=== PATIENT | male | born 1945 | race Caucasian/White ===

== ENCOUNTER 2019-10-12 16:16 | Inpatient (IN) | payer OTHER ==
[~2019-10-12] VITALS: Ht 175.3 cm; Wt 90.0 kg
[2019-10-12 17:31] VITALS: BP 98/39
[2019-10-12 17:53] VITALS: BP 98/39
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
[2019-10-12] MEDS ORDERED: PAIN RELIEF325 MG PO (18:06)
[2019-10-12] MEDS ORDERED: VITAMIN C500 M2 PO (18:07)
[2019-10-12] MEDS ORDERED: FLOMAX0.4 MG PO (18:18)
[2019-10-12] MEDS ORDERED: HYDROCORT-PRAMO30 G1 TOP (18:19)
[2019-10-12] MEDS ORDERED: IPRAT-ALBUT 0.5-3 ML NEB (18:23)
[2019-10-12] MEDS ORDERED: LASIX 40 MG TAB40 MG PO (18:25)
[2019-10-12] MEDS ORDERED: LOSARTAN POTASS50 MG PO ×2 (18:26→18:27)
[2019-10-12] MEDS ORDERED: MELATONIN TR 51 EACH PO (18:29)
[2019-10-12] MEDS ORDERED: METAMUCIL1 EAC1 PO (18:30)
[2019-10-12] MEDS ORDERED: PREDNISONE 10 M10 MG PO (18:32)
[2019-10-12] MEDS ORDERED: PRIMIDONE 250M250 MG PO (18:35)
[2019-10-12] MEDS ORDERED: SENNA8.8 MG/5 M PO (18:36)
[2019-10-12] MEDS ORDERED: SINEMET 25-1001 EAC1 PO (18:37)
[2019-10-12 20:00] VITALS: BP 105/68
--- NOTE | 2019-10-12 23:50 | NUR ---
ASSUMED CARE @ 19:15 ON 10/12/19, UP IN A W/C IN THE DAY ROOM. COOPERATED WITH ASSESSMENT AND TOOK MEDS CRUSHED IN YOGART WITH NECTAR THICKENED LIQUIDS. WHEN TRANSFERRED TO BED BECAME COMBATITIVE WITH INCONTINENT CARE, HITTING STAFF. ORDER OBTAINED FORM WALLY SLATER FOR IM ZYPREXA 5 MG X 1 @ 23:45.
[2019-10-13 04:08] VITALS: BP 105/68
--- NOTE | 2019-10-13 06:30 | NUR ---
SLEPT 7.2 HOURS OVERNIGHT.
--- NOTE | 2019-10-13 07:00 | NUR ---
Assumed care of patient this am. Patient in bed resting. Patients voice aphasic. Patient responds appropriately to questions and can be understood by repeating questions as needed. Patient ambulates via wheelchair. Patient requires assist to get to chair. Patient takes medications crushed in applesauce. Patients assessment reveals clear breath sounds, active bowel sounds, and s1 s2 heard with auscultation.
[2019-10-13 07:30] VITALS: BP 164/77
--- NOTE | 2019-10-13 08:36 | NUR ---
Pt identified with 2 point high nutrition screening risk for unintentional wt loss and decreased appetite. EMR with little info at this time and pt just recently admitted. Appears wt down about 10 lb x 3 mo. BMI is 28.8. No record of intake yet. On [facility] altered diet. Will followup again on 10/16 when further intake trends are identified.
[2019-10-13 08:49] VITALS: BP 164/77
--- NOTE | 2019-10-13 16:37 | NUR ---
SPENCER contacted Philomena Silva to gather background information on pt and schedule a family meeting. SPENCER called [phone] (cell) and [phone] (home) and no answer. SPENCER left a message at both numbers. SW team will continue to follow pt during his stay.
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
[2019-10-14 07:55] VITALS: BP 146/88
--- NOTE | 2019-10-14 12:41 | NUR ---
SW completed assessment with Pt's , Waylon Kirk, as Pt unable to complete assessment. SPENCER also scheduled a family meeting for 10/17/19 @ 3:30pm.
--- NOTE | 2019-10-14 18:26 | NUR ---
Lying in bed with out s/o distress. States "no" in response to questions. Mild aggression when attempting to get up in wheelchair. Orientated to person. Able to bear very little weight and required assistance of 3 staff members. Alert and focuses. Breath sounds clear in upper lobes, decreased in lower. RT here giving treatment. Loose, nonproductive cough. Color pink with brisk capillary refill and palpable peripheral pulses. +1-+2 nonpitting edema in lower extremities, kay hose in place. Regular HR auscultated. Active bowel sounds over soft, rounded abdomen. Voiding yellow urine. 1500 Sitting most of day in wheelchair without s/o distress. Compliant with meds. 1830 To bed with assistance of chemic mangler. No s/o distress. Color pink.
[2019-10-14 21:22] VITALS: BP 112/59
--- NOTE | 2019-10-14 22:30 | NUR ---
ASSUMED CARE ON 10/14/19 @ APROXIMATELY 19:15, IN BED AWAKE AND RESPONSIVE TO QUESTIONS AND CONVERSATION, PROVIDING ONE WORD ANSWERS TO QUESITONS, AND SMILING IN RESPONSE TO HUMOR. COOPERATED WITH ASSESSMENT, HRRR, S1S2 AUSCULTATED, LUNGS SOUNDS COURSE UPPER MCCOY, RT PROVIDED RESPIRATORY TX. ABD SOUNDS N X 4 Q. INCONTINENT CARE GIVEN, X3 ASSIST, SOME RESISTANCE NOTED, STAFF NEEDED TO HOLD FOREARMS TO KEEP PT FROM SCRATCHING STAFF. BM X 1 INCONTINENT. REDNESS NOTED TO GROIN, GLUTEAL CLEFT, AND ABDOMEN FOLDS. RETURNED TO SLEEP, BED IN LOW POSITION WITH HOB ELEVATED, BED ALARM SET, WILL CONTINUE TO MONITOR Q 12 MINUTES FOR PATIENT SAFETY.
--- NOTE | 2019-10-15 04:42 | NUR ---
PATIENT AGITATED WITH INCONTINENT CARE, IM OLANZAPINE 7.5 MG PROVIDED @ 04:35 IN THE L DELT, TOLERATED WELL, INCONTINENT CARE PROVIDED IN 15 MINUTES.
[2019-10-15 09:40] VITALS: BP 123/61
[2019-10-15 09:49] VITALS: BP 123/61
--- NOTE | 2019-10-15 09:57 | NUR ---
ASSUMED CARE AT 0700 THIS MORNING. PT. IN BED. CERTIFIED PERSONAL CHEF'S TIMES 2 GOT PT. UP IN W/C FOR BREAKFAST. HE CONTINUES TO BE LATHARGIC. HE WAS SOMEWHAT COMBATIVE WHEN HIS MEDICATIONS WERE INTRODUCED TO HIM THIS MORNING. IT TOOK A WHILE FOR HIM TO ACCEPT THE MEDICATIONS. HE DID ATTEMPT TO MOVE STAFF AWAY BY FLAPPING HIS ARMS. HE WOULD SAY, "I DON'T NEED THOSE. I DON'T WANT THAT", BUT EVENTUALLY DID TAKE THOSE MEDICATIONS. HE ATE VERY LITTLE FOR BREAKFAST. HE WAS UNABLE TO ATTEND MORNING MEETING. NO S/S AVH OR SI/HI.
[2019-10-15 19:55] VITALS: BP 125/54
--- NOTE | 2019-10-15 23:43 | NUR ---
ASSUMED CARE ON 10/15/19 @ 19:15, IN BED, AWAKENS TO VOICE. BTX PROVIDED BY RT. COOPERATED WITH PHYSICAL ASSESSMENT. LUNGS CLEAR TO AUSCULTATION, HRRR, ABD NORMOACTIVE X 4 Q. UNABLE TO ANSWER MENTAL HEALTH ASSESSMENT, NO APPARENT VH OR AH. DOES NOT SEEM TO FEEL INCLINED TO HURT SELF. BECOMES COMBATITIVE WITH ATTEMPTS TO PROVIDE INCONTINENT CARE. TOOK ABOUT HALF OF PO MEDS CRUSHED IN ICE CREAM, REFUSED REMAINDER. BED IN LOW POSITION, BED ALARM SET, WILL CONTINUE TO MONITOR Q 12 MINUTES FOR PATIENT SAFETY.
--- NOTE | 2019-10-16 05:50 | NUR ---
SLEPT 11 HOURS OVERNIGHT
--- NOTE | 2019-10-16 07:00 | NUR ---
Assumed care of patient this am. Patient in bed sleeping. Patient was slightly combative when woke up. Patient ambulates via wheel chair. Patient is a assist x2. Patient takes medications crushed in pudding. Patients affect tense. Patients assessment reveals clear breath sounds, active bowel sounds, and s1 s2 heard with auscultation. Vital signs stable.
[2019-10-16 07:30] VITALS: BP 141/88
[2019-10-16 08:37] VITALS: BP 141/88
--- NOTE | 2019-10-16 23:00 | NUR ---
PATIENT WAS IN BED SLEEPING AND EASILY AWAKENED WHEN I CAME ON SHIFT AT 1900. PATIENT IS CONFUSED AND COMBATIVE WITH CARES. PATIENT IS INCONTINENT AND ASSISTED IN INCONTINENCE CARES WITH ASSIST OF 2-3 PEOPLE. ANTIFUNGAL CREAM PLACED IN GENITAL AREA WHERE IT IS RED AND PATIENT SCRATCHES. ANTIFUNGAL CREAM ALSO PLACE UNDER ABDOMINAL FOLD WHERE AREA IS RED ALSO. AREAS WERE CLEANED FIRST WITH SOAP AND WATER BEFORE APPLYING CREAM. TRIED TO TALK CALMLY AND EXPLAIN EACH STEP IN THE PROCESS WE CARED FOR HIM. PATIENT TOOK HIS MEDS CRUSHED IN PUDDING. FINALLY GOT THEM DOWN WITHIN 3 TIMES OF GIVING. WOULD ONLY TAKE ONE SPOON OF PUDDING AND THEN REFUSE AND FIGHT. CAME BACK AT 2 DIFFERENT TIMES AND GOT ALL THE MEDS DOWN. PATIENT WENT BACK TO SLEEP IMMEDIATELY. NIGHT CLOTHES WERE PUT ON HIM AND COMPRESSION STOCKINGS TAKEN OFF. CLOTHES BEING WASHED TONIGHT. BED ALARM ON AND BED IN LOW POSITION. SIDE RAILS UP.
[2019-10-17] VITALS (7 sets, daily range): BP systolic 106–120; BP diastolic 54–84
--- NOTE | 2019-10-17 05:55 | NUR ---
WHEN DOING INCONTINENCE CARES THIS AM, THIS NURSE NOTICED SOME SEROUS SANGIOUS DRAINAGE ON PATIENT'S MID BACK BETWEEN SHOULDER BLADES. AN ABRAISION WITH 1 INCH AREA THAT HAS BROKEN SKIN IS PRESENT AND OVERALL SIZE OF ABRAISON IS 3 INCHES. CLEANED AREA WITH SOAP AND WATER AND APPLIED STERILE DRESSING. CONSULT FOR WOUND CARE PUT IN. WILL ASK DAY SHIFT TO TAKE PICTURE WHEN PATIENT GETS UP FOR THE DAY. APPEARS TO HAVE OCCURRED FROM FRICTION IN BED WHEN MOVING AROUND AND TRYING TO GET HIS SHIRT OFF. WILL CONTINUE TO MONITOR AND TURN PATIENT NEEDED PRN.
--- NOTE | 2019-10-17 06:02 | NUR ---
PATIENT DRESSED FOR DAY BUT WANTING TO SLEEP. WAS NOT COMBATIVE TODAY WITH CARES BUT STILL TRIES TO HIT AT TIMES. COMPRESSION STOCKINGS PUT BACK ON PATIENT. 2+ BLE EDEMA. YELLOW SHIRT PLACED ON PATIENT. BED ALARM ON AND BED IN LOW POSITION.
--- NOTE | 2019-10-17 06:14 | NUR ---
CALLED DR ANNE[facility]SWERING [facility] AND SPOKE WITH EMILI. LET HER KNOW THAT WE HAD A NEW CONSULT ORDER FOR MID BACK ABRAISION BETWEEN SHOULDER BLADES PER DR MATOS. ROUTINE CONSULT.
[2019-10-17 12:25] LABS: HEMATOCRIT 42.4 % (42.0-52.0); HEMOGLOBIN 13.6 gm/dL (14.0-18.0); MCH 28.9 pg (26.0-34.0); MCV 90.4 fL (80.0-100.0); PLATELET COUNT 133 thou/uL (150-400); RDW 17.9 % (10.5-14.5); WBC 6.4 thou/uL (4.0-11.0)
[2019-10-17 12:40] LABS: CALCIUM 10.6 mg/dL (8.5-10.1); POTASSIUM 4.3 mmol/L (3.5-5.1)
[2019-10-17 12:45] LABS: ABSOLUTE NEUTROPHILS 5.3 thou/uL (1.4-8.2); ANISOCYTOSIS 1+; METAMYELOCYTES 1 %
--- NOTE | 2019-10-17 13:56 | NUR ---
WOUND CONSULT; ROUNDING WITH DR ANNE TODAY. THE PATIENT WAS MILDY COMBATIVE TODAY. THE WOUND TO THE UPPER BACK WAS MINIMAL AND ONLY BLISTER-LIKE. RECOMMENDATIONS; APPLY A BOARDERED FOAM DRESSING TO THE UPPER BACK, CHANGE M/W/F AND PRN. WILL DISCUSS WITH JERROD
[2019-10-17 14:37] LABS: ALBUMIN 2.8 g/dL (3.4-5.0); DIRECT BILIRUBIN 0.2 mg/dL (<0.1-0.2); TOTAL BILIRUBIN 0.5 mg/dL (<0.1-1.0); TOTAL PROTEIN 7.3 g/dL (6.4-8.2)
[2019-10-17 14:38] LABS: URINE BILIRUBIN NEGATIVE (Negative); URINE BLOOD NEGATIVE (Negative); URINE CLARITY CLEAR; URINE COLOR YELLOW; URINE GLUCOSE-RANDOM* NEGATIVE (Negative); URINE KETONES TRACE (Negative); URINE LEUKOCYTES-REFLEX NEGATIVE (Negative); URINE NITRITE-REFLEX NEGATIVE (Negative); URINE PROTEIN (DIPSTICK) NEGATIVE (Negative)
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
--- NOTE | 2019-10-17 19:46 | NUR ---
In w/c at table without s/o distress, slouched to left. Responsive to questions with very little vocalizations. Cooperative but drowsy. Took meds without difficulty but had brief coughing episode several min after meds administered. At approximately 0950 was noted to have respiratory rate of 24 and was using supraclavicular retractions. No nasal flaring. O2 sat was 90-93% on RA. Breath sounds decreased in LLL, clear in upper lobes. BP 120s/70s with HR of 104. Repositioning did not improve. Dr. Tejeda here, evaluating pt. Ordered CXR, UA and labs. Spoke with Dr. Hwang via phone. 1200 Dr. Hwang notified of CXR results and that labs/straight cath UA was complete. Ordered VS q 1 hr X 6 hrs, FIO2 of 2 L via NC if sats decreased below 90% and to titrate to keep sats 90-92%. States he will evaluate pt later in afternoon. Also ordered blood CX times 2 and Levaquin 500 mg Q 24 hrs with first dose lexus. here, aware of situation with appropriate questions and concerns. Aware that Dr. Tejeda is considering transferring pt. to a medical unit. 1500 Pt. clinically much improved with RR 16-20 and O2 sats on RA in mid 90s. Took Levaquin PO without difficulty. PT here evaluating patient. Pt. able to ambulate with walker and alot of assistance around unit. Dr. Hwang and Dr. Tejeda here evaluating pt. Concerned about elevated calcium level. Will give 500 ml LR over several hours per IV. 1700 IV team here. Placed 20g jelco per R forearm without difficulty. LR at 150 cc/hr started at 1630. IV site soft and flat without redness or edema, good blood return. Pt. alert and interactive sitting in wc in dining room. Much more active, no s/o distress. 1830 Abrasion to middle back cleaned with NS and drsg applied. Continues to sit without s/o distress. IV infusing without diff per R forearm.
--- NOTE | 2019-10-17 23:36 | NUR ---
PATIENT WAS UP IN IN DINING ROOM RECIEVING IV FLUIDS OF LR 500ML AT 150CC/HR. PATIENT HAS SALINE LOCK PLACED IN RIGHT FOREARM. FLUIDS COMPLETED AT 2004 WITH 500ML IN. PATIENT TOLERATED WELL. PATIENT HAS LEFT HEMIPARESIS AND LEANS TO THE LEFT IN HIS WC. PLACED PILLOW TO HELP PROP HIM UP MORE COMFORTABLY BUT PATIENT KEPT REMOVING IT. PATIENT WAS CALM AND COMPLIANT I SPOKE WITH HIM AT EYE LEVEL AND HE DID TRY AND ANSWER YES AND NO QUESTIONS. FED PATIENT ICECREAM WITH HIS HS CRUSHED MEDS THAT HE TOOK WITHOUT A PROBLEM. IV SITE PATENT WITHOUT REDNESS OR SWELLING AND HAS TRANSDERMAL DRESSING. NS 20CC USED TO FLUSH SALINE LOCK BEFORE CLAMPING OFF. WILL LEAVE LOCK IN D/T RECHECKING SOME LABS IN AM TO ASSESS FOR NEED OF ANY MORE IV FLUIDS. PATIENT IS INCONTINENT AND WAS DRY WHEN PUT TO BED TONIGHT. ANTIFUNGAL CREAM APPLIED TO GENITALS AND ABDOMEN FOLD D/T SLIGHT REDNESS THAT IS CLEARING. PATIENT CONTINUES TO BE COMBATIVE WITH CARES BUT THIS DOES DECREASE IF PATIENT IS APPROACHED SLOWLY AND TALKED THRU THE PROCESS. I KEPT TELLING HIM HE IS SAFE. HE IS OK. AND EXPLAINED WE WORKED WITH HIM. HE IS ASSIST X 3 WITH TRANSFER AND CARES. LUNGS ARE COARSE AND CRACKLES IN RIGHT BASE. HIS 02 SATURATION ON RA TONITE IS 94%. PLACED HEAD OF BED UP TO 45 DEGREE LEVEL TO HELP WITH AIR EXCHANGE IN BREATHING. PATIENT IS NOT SOA. HIS BP IS 117/77 PULSE 96 AND RESPIRATIONS AT 18. TEMP IS 98.5. PATIENT HAS BEEN IN PLEASANT MOOD TONITE AND SMILING AT TIMES. CONTINUING TO MONITOR. BED IN LOW POSITION AND BED ALARM ON.
--- NOTE | 2019-10-18 01:02 | NUR ---
PATIENT SLEEPING IN BED WITH HOB UP 45 DEGREES. 02 SAT IS AT 91% ROOM AIR. NO SOA OR RESPIRATORY DISTRESS. PATIENT'S BRIEF IS DRY AND INTACT. BED ALARM ON AND BED IN LOW POSITION. CONTINUING TO MONITOR.
--- NOTE | 2019-10-18 05:01 | NUR ---
PATIENT SLEEPING WELL TONIGHT. PATIENT HAS MAINTAINED AN 02 SAT AT 91% ON ROOM AIR. DRESSING ON BACK IS CLEAN AND DRY. COMPRESSION STOCKINGS WERE REMOVED AT BED TIME. DENIES PAIN. WILL CONTINUE TO MONITOR. PATIENT HAS NOT BEEN INCONTINENT SO FAR TONIGHT. ABDOMEN SOFT AND NON TENDER. PATIENT HAS ONLY HAD ICECREAM PO TONIGHT. HIS OTHER FLUID INTAKE WAS IV FLUIDS 500ML. WILL CHECK ON PATIENT AGAIN FOR INCONTINENCE CARES IN AN HOUR.
[2019-10-18 05:46] LABS: ALBUMIN 2.1 g/dL (3.4-5.0); CALCIUM 9.6 mg/dL (8.5-10.1); CREATININE 0.9 mg/dL (0.7-1.3); POTASSIUM 5.1 mmol/L (3.5-5.1); TOTAL BILIRUBIN 0.3 mg/dL (<0.1-1.0)
--- NOTE | 2019-10-18 06:09 | NUR ---
PATIENT CHECKED FOR INCONTINENCE AT 0530. PATIENT REMAINED DRY THRU NIGHT. THIS NURSE BLADDER SCANNED PATIENT AND PATIENT RETAINING 548CC IN HIS BLADDER. CALL PLACED TO Nhi AYALA NP FOR ORDER TO STRAIGHT CATH. ORDER GIVEN TO STRAIGHT CATH PATIENT ONE TIME AND THEN BLADDER SCAN PATIENT 8 HOURS LATER. IF PATIENT IS RETAINING 400ML OR GREATER AT THAT TIME THEN NURSE TO CALL THE DR FOR FURTHER ORDERS. PATIENT TOLERATED STERILE STRAIGHT CATH PROCEDURE WITH ASSIST X 3 TO ASSIST WITH HIS COMBATIVE BEHAVIORS DURING CARE. WAS ABLE TO EXTRACT 500CC OF BRIGHT RAMIREZ COLORED URINE. PATIENT SLEPT THRU MOST OF THIS PROCEDURE. ANTIFUNGAL CREAM APPLIED TO PERINEUM AND ABDOMINAL FOLDS. PATIENT SLEEPING. BED ALARM ON AND IN LOW POSITION.
--- NOTE | 2019-10-18 08:38 | EKG ---
[place] [address] [facility] [place] [address] ELECTROCARDIOGRAM REPORT Name: ANABELLE LUBIN Room #: 527B-B ADM IN M.R.#: [id number] Admission: 10/12/19 Attend Phys: Mickey Tejeda DO Discharge: Date of : 43 Report #: [id number] THIS REPORT FOR: //name// [facility] Test Date: 2019-10-17 Test Time: 17:00:33 Pat Name: ANABELLE LUBIN Department: Room: [facility] Gender: M Litigation Services Manager: Mala WAY : 1945 Requested By: Davy Hwang Order Number: [id number] MD: Baltazar Enriquez Measurements Intervals [place] Rate: 96 P: 53 WI: 167 QRS: -8 QRSD: 95 T: 47 QT: 355 QTc: 449 Interpretive Statements Sinus rhythm Left ventricular hypertrophy No previous ECG available for comparison Electronically Signed On 10-18-2019 8:38:00 BENCH MOL[employer] APPRENTICE by Baltazar Enriquez [email or web address] <ELECTRONICALLY SIGNED> By: Baltazar Enriquez MD, [facility] 10/18/19 0838 1700 1700 Baltazar Enriquez MD, FACC /EPI
[2019-10-18 09:30] VITALS: BP 142/49
[2019-10-18 10:51] VITALS: BP 142/49
--- NOTE | 2019-10-18 13:59 | NUR ---
SW called and left a VM with pt's regaridng possible acute rehab uponn d/c and permission to send the referral to [facility] Acute rehab.
--- NOTE | 2019-10-18 14:38 | NUR ---
Assumed care of pt @ 0700. Pt calm et cooperative this am. Nursing assessment performed without difficulty this am. Pt ate meals without difficulty et took medications without complaint. No behaviors noted this am. Will continue to monitor per protocol.
[2019-10-18 20:08] VITALS: BP 109/53
--- NOTE | 2019-10-19 04:06 | NUR ---
1909-Report received from day shift nurse and care assumed. He was in his room lying down and resting. He was compliant with most of the assessment, had aphasia, had one word answers at times other times did not answer. Alert to name only. He has 3+ bilateral lower extremity edema, legs elevated and pt. repositioned side to side. He had a bright affect while talking. Mostly repeated/mirrored what was said to him. Good eye contact. He was compliant with HS meds. crushed and put into applesauce. He slept for first portion of the night hours, then was awake talking to himself. He was incontinent of urine large amount and changed in the nite. He was not aggressive with cares, staff talked with hims softly explaining and he talked during cares but not aggressive. He only slept a short time tonight.
[2019-10-19 08:06] VITALS: BP 132/71
--- NOTE | 2019-10-19 11:20 | NUR ---
Nutrition follow up: Continues on regular mechanically altered/ground diet. Meal intakes are sporadic at times, but over the last 2-3 days, he is now consuming 65-100% of most meals. Did refuse dinner last night, but ate 100% of lunch on 10/18 and 100% of breakfast w/ 100% AM snack so far today. Noted to be alert to name only per latest nursing note. Aphasia with 1 word answers at times or no answer. Chart reviewed. Do note wound care seeing pt with mention of wound to upper back minimal and only blister-like. Will add 1 daily Ensure to breakfast tray for added calorie/protein provision in case another meal of the day is lower than usual. Will keep as low nutrition risk for now, continue to monitor for any drastic po decline.
--- NOTE | 2019-10-19 12:41 | NUR ---
Pt's achieving the current goal to attend at least one recreation therapy group per day to maintain engagement and stimulation within the miliew without decline. Pt did fall ill but has a brighted affect when engaged. This morning was happy, laughing, enjoying comrodery, and following exercise moments to the best of his ability. No change to plan.
--- NOTE | 2019-10-19 14:58 | NUR ---
I have reviewed the documentation by CECILIA ROMERO from 10/19/19 to 10/19/19 and I concur with it. NIKIA SINGH
--- NOTE | 2019-10-19 15:23 | NUR ---
SPENCER spoke with pt's Lindsay who said she wants pt to do go acute rehab at [facility]. SPENCER emailed the coordinator for acute rehab asking her to begin processing pt. SPENCER completed a DA 124-C for pt. SW team will continue to follow pt during his stay.
[2019-10-19 17:29] LABS: CREATININE 0.8 mg/dL (0.7-1.3); POTASSIUM 4.6 mmol/L (3.5-5.1)
[2019-10-19 19:32] VITALS: BP 107/56
--- NOTE | 2019-10-19 20:16 | NUR ---
Up in w/c without s/o distress. Much more alert. Humming at times. Orientated to self only. No verbalizations r/t SI/HI. Took meds without difficulty. Breath sounds clear in upper lobes, remain diminished in LLL. No retractions or nasal flaring. Color pink with brisk capillary refill and palpable peripheral pulses. Regular HR auscultated. +2 edema in feet, compression stockings on. Active bowel sounds over soft, rounded abdomen. No stool documented since 10/15. Dr. Tejeda notified, fleet enema ordered. Requires 2 person assistance to transfer. Abrasion per back without redness or drainage, bandage intact. 1500 Small amt of brown colored liquid from fleet enema. Brief dry, no urine today despite adequate PO intake of [address] Tejeda notified, referred to Dr. Hwang. Bladder scan recorded at [address] Hwang notified. Ordered stat BMP and straight cath if no urine by 1800. 1700 here visiting, aware of plan. Appropriate questions and concerns. suggested [employer] stating that always works at home. Dr. Tejeda notified, order obtained for med. Took without difficulty. 1900 Placed back in bed after dinner. When went in to do straight cath at 1810 he had turned himself around in bed so feet were at HOB and head was at FOB and he was smearing scant amount of stool on body and bed. Cleaned up and straight cath done for 400 ml of clear, concentrated neel urine with one small clot approximately 0.25 cm at end of cathertar. Very cooperative with cleanup and cath and stated he felt better once complete. Dr. Hwang notified of results and clarified phone number to contact him--info passed on in report.
[2019-10-20 01:59] VITALS: BP 107/56
--- NOTE | 2019-10-20 02:07 | NUR ---
ASSUMED CARE @ 19:30 ON 10/19/19, IN BED, AWAKE ALERT AND ORIENTED TO SELF. APHASIA NOTED. UNDERSTANDS WHEN SPOKEN TO, HOWEVER RESPONDS WITH ONLY 2 WORD ANSWERS. ABLE TO UNDERSTAND MOST OF WHAT HE SAYS. CALM PLEASANT AFFECT NOTED. COOPERATED WITH ASSESSMENT AND HS MEDS CRUSHED IN APPLESAUCE. HRRR, LUNGS CTA ALL MCCOY, NOTED TO BE BREATHING WITH REGULAR RESPIRATIONS, EXTREMITIES PINK AND LESS THAN 3 SECOND CAP REFILL. INCONTINENT CARE PROVIDED, BM NOTED. BED IN LOW POSITION, BED ALARM SET, WILL CONTINUE TO MONITOR Q 12 MINUTES FOR PATIENT SAFETY.
--- NOTE | 2019-10-20 06:18 | NUR ---
SLEPT 2.8 HOURS OVERNIGHT.
[2019-10-20 07:40] VITALS: BP 142/68
--- NOTE | 2019-10-20 10:39 | NUR ---
VERY AGITATED AND COMBATIVE UPON INITAL ASSESSMENT THIS AM-AT APPROX 0745 APPROACHED IN ROOM FOR VS AD AMD AM CARES PRIOR TO BREAKFAST, GRABBING AT COVERS,BP AMCHINE AND REFUSING TO LET GO-ANGRY FACIALMEXPRESSION AND LOUDLY SWEARING-WHEN ASSISTED TO SITTING POSITION BY 3 STAFF WAS NOTED TO HAVE BEEN INCONTINENT OF STOOL-ATTEMPTING TO HIT AND KICK STAFF WHEN PERINEAL CARE PROVIDED,BARRIER CREAM PLACE AND BROUFGT TO BREAKFAST -DID EAT WELL WITH ASSIST-TAKE MEDS CRUSHED WITH YOGURT. LABILE MOOD VASCILATING FROM LOUD ANGRY SWEAR WORD TO LAUGHING LOUDLY WITH NO APPARENT TRIGGER WITHIN A MINUTE OT TWO. IS APHASIC AND WPRDS/SPEECH NOT CONSISTANT WITH CURRENT TOPIC.
--- NOTE | 2019-10-20 16:41 | NUR ---
INCONTINENT OF BOWEL AND BLADDER-ASSISTED TO BED BY 3 STAFF AND INCONTINENT CARE PROVIDED-LARGE SOFT BOWEL MOVEMENT AND DURING INCONTINENT CARE IS CONSTANTLY ATTEMPTING TO GRAB PRIVATES RESULTING IN GETTING BM ALL OVER HANDS-ATTEMPTING TO SCRATCH NURSING STAFF-THE WHOLE TIME LAUGHING LOUDLY-DOES TAKE NECTAR THICKENED LIQUIDS VERY WELL. BARRIER CREAM APPLIED TO PERINEAL AREA SLIGHTLY REDDENED BUT NO OPEN AREAS OR RASHES NOTED -2+ pedal edema to FEET/;OWER EXTREMETIES-BLUISH PURPLE COLORATION BUT WARM TO TOUVH-FAINT PEDAL PULSES PALPABLE
[2019-10-20 19:24] VITALS: BP 116/63
--- NOTE | 2019-10-20 22:26 | NUR ---
ASSUMED CARE ON 10/20/19 @ ABOUT 19:15, IN BED AWAKE AND ALERT TO SELF ONLY. COOPERATED WITH ASSESSMENT, HEART RRR LUNGS CTA, ALL MCCOY. ABD N X 4 Q. BM TODAY, 10/20. URINE OUTPUT NOTED. INCONTINENT CARE GIVEN X 4 STAFF. CLEAN LINNENS AND CHUCKS PROVIDED. COOPERATED BY HELPING TO ROLL AND HOLD SIDE RAIL FOR INCONTINENT CARE. PLEASANT AFFECT NOTED. BED IN LOW POSITION, BED ALARM SET. WILL CONTINUE TO MONITOR Q 12 MINUTES FOR PATIENT SAFETY.
[2019-10-20 23:30] VITALS: BP 116/63
--- NOTE | 2019-10-21 05:16 | NUR ---
SLEPT 10.8 HOURS OVERNIGHT.
[2019-10-21 09:21] VITALS: BP 120/62
--- NOTE | 2019-10-21 13:01 | NUR ---
Snoring this AM. Initially combative with VS per ENVIRONMENTAL PROTECTION ECONOMIST but then very cooperative on 2nd attempt. Up to WC with assistance of 2 staff, moderately cooperative. Bright affect when awake but sitting in sloched position in WC and appears to sleep. Cooperative with meds, miralax held d/t 2 large BM per report overnight. Repeats words back and sometimes hums. Breath sounds clear in upper lobes, decreased in LLL. No s/o resp distress. Regular HR auscultated. Color pink with brisk capillary refill and palpable peripheral pulses. Incontinent of pale yellow urine in brief. Active bowel sounds over soft, rounded abdomen. Stood up with walker and 2 staff to clean, unsteady, bearing minimal weight. Abrasion to mid back mostly healed with 3-4 mm areas of scabs. 1115 here visiting. Upset that received Olanzapine this AM. Verbalizing frustration that he was not accepted into rehab and states that she wants him to be discharged home either Wednesday or Wednesday. Wants to speak with Dr. Tejeda and Dr. Hwang. Has questions r/t pneumonia f/u, why he is still on potassium. Appropriate questions and concerns. Notified that PA had rounded for psychiatry this AM. Dr. Hwang contacted via phone. DCed potassium and will obtain BMP tomorrow AM. Plans on obtaining f/u CXR in 6 wks. Agrees to meet with tomorrow morning at 0900 am to discuss plan. also upset that pt nails are long with stool underneath them. Nails clipped and hands cleaned.
[2019-10-21 19:44] VITALS: BP 117/72
--- NOTE | 2019-10-21 23:44 | NUR ---
Care assumed of patient at 1915: Patient seated in w/c in dayroom at start of shift. Patient alert to person only, otherwise confused and forgetful. No s/s of pain or discomfort noted. Patient making repetitive vocal sounds, mumbling, humming. Patient declined HS medication originally. Staff x2 attempted to get patient to take his medication crushed in yogurt. Patient irritable and frustrated with this. Ate approximately 10% yogurt cup then stated to "get away". Patient did try to swing his arms to hit nurse but was unsuccessful. No s/s of pain or discomfort noted. Patient assisted to bed with assist x4. Patient was able to stand/pivot transfer with max assist x2, then 2 staff managed clothing. Patient did not care for jamie care completion and attempted to swing arms. Jamie care completed and barrier cream applied. No s/s of AH/VH, delusional or paranoia behaviors. Patient was able to fall asleep rather quickly once assisted to bed and has been resting quietly since.
[2019-10-22 05:30] LABS: CALCIUM 9.9 mg/dL (8.5-10.1); CREATININE 0.8 mg/dL (0.7-1.3); POTASSIUM 4.6 mmol/L (3.5-5.1)
[2019-10-22 09:06] VITALS: BP 112/70
--- NOTE | 2019-10-22 11:56 | NUR ---
LABILE MOOD THIS SHIFT. OBSERVED TO HAVE ANGRY FACIAL EXPRESSION AND LOUD TONE OF VOICE ONE MINUTE AND THEN LOUD INCONGRUENT LAUGHTER WITHIN SPAN OF 2-3 MINUTES. IS APHASIC AND NOT ABLE TO COMMUNICATE NEEDS VERBALLY BUT DOES NOD HEAD YES OR NO OR GESTURE TO STAFF AND IS ABLE TO COMMUNICATE NEEDS IN THAT MANNER.INCONTINENT OF BBLADDER AND IS COMBATIVE WITH PERINEAL CARE
[2019-10-22 19:52] VITALS: BP 145/62
[2019-10-22 22:09] VITALS: BP 145/62
--- NOTE | 2019-10-23 04:11 | NUR ---
PT OUT IN DAY ROOM AT START OF EVENING. AFFECT FLAT AND NOT INTERACTING WITH ANYONE. CONFUSED AND GRUMBLING. UNABLE TO ACERTAIN WHAT HE IS SAYING. ONLY ABLE TO GET HIM TO TAKE HALF OF HS MED IN ICE CREAM. SETTLED INTO BED, CLEANED UP HE HAD A SOFT BROWN BM. PERIODICALLY THROUGH THE NIGHT,CALLED OUT. GENERALLY SLEPT WELL.
--- NOTE | 2019-10-23 07:00 | NUR ---
Assumed care of patient this am. Patient in bed resting. Patient ambulates via wheelchair. Patient requires full assist to get from bed to chair. Patient states that his stomach hurts. Patients affect tense. Patients assessment reveals clear breath sounds diminished in the bases, bowel sounds active, s1 and s2 heard with auscultation.
[2019-10-23 07:30] VITALS: BP 126/65
[2019-10-23 07:57] VITALS: BP 126/65
--- NOTE | 2019-10-23 16:10 | NUR ---
SPENCER and the psych doctor contacted Dr. Park with [facility] who said pt had HH services through [facility] and pt's would like that service again. SPENCER contacted [facility] and spoke with Margo who confirmed [facility] had provided services to pt in the past. She asked a referral be faxed to [phone]. SPENCER faxed the document to the number given. SPENCER confirmed with Margo that she received the referral. SPENCER relayed that pt with be discharging on 10/25. SPENCER provided an update to pt's Lindsay. SPENCER team will continue to follow pt during his stay.
[2019-10-23 19:40] VITALS: BP 127/71
[2019-10-23 22:00] VITALS: BP 127/71
--- NOTE | 2019-10-24 01:39 | NUR ---
PT WAS SITTING OUT AT A TABLE IN THIS LAST EVENING AND WAS SMILING AND REACTIVE TO PEOPLE TALKING WITH HIM. HE IS APHASIC. AT TIMES HIS WORDS ARE UNDERSTANDABLE AND IN LOGICAL ORDER. HE BECAME FRUSTRATED WHEN I GAVE HIM A SPOON FULL OF ICECREAM WITH MEDS. HE IMMEDIATELY SHUT DOWN AND COVERED HIS HEAD AND TURNED RED IN THE FACE AND SAID "NO. NO.NO." I TOLD HIM I DID NOT MEAN TO UPSET HIM. I EXPLAINED AGAIN WHAT THE MEDS WERE FOR. HE DID FINISH TAKING THEM WHEN HE WENT TO BED LATER. HE WAS ABLE TO TELL ME LATER THAT HE DIDN'T UNDERSTAND ME. THEN HE SAID HE NEEDS A RIDE HOME. I LET HIM KNOW THAT IT WAS VERY COLD OUT WITH LOTS OF SNOW SO THEY WERE WANTING PEOPLE TO STAY IN AND SAFE. I EXPLAINED THAT I WAS GOING TO HAVE TO STAY THE NIGHT ALSO. I ALSO SPOKE WITH HIM AND TOLD HIM AGAIN THAT HIS HAD CALLED TO CHECK ON HIM TODAY AND THAT SHE LOVES HIM. I TOLD HIM SHE DIDN'T GET OUT BECAUSE OF THE SNOW AND ICE. PT SAID "JESUS, I LOVE HER." PATIENT WAS ABLE TO ASSIST IN TRANSFER FROM TO BED BY STANDING AND TAKING STEPS WITH HIS WALKER MENG. PRAISED HIM FOR HIS GREAT WORK. PATIENT NEEDS LOTS OF REASSURANCE AND EXPLANATION BEFORE STARTING CARES WITH HIM OR HE BECOMES COMBATIVE. HE NEEDS TO FEEL SECURE. HE IS ALERT AND AWARE OF WHAT GOES ON AROUND HIM. PATIENT IS SLEEPING AT THIS TIME. THE REDNESS UNDER HIS ABDOMINAL FOLD IS CLEARING. BED ALARM ON AND BED IN LOW POSITION. PATIENT DRANK 2 CUPS OF THICKENED WATER TONITE. HE HAS BEEN EATING BUT HIS LIPS HAVE BEEN CHAPPED AND NEED TO OFFER HIM MORE FLUIDS. WILL CONTINUE TO MONITOR.
--- NOTE | 2019-10-24 05:58 | NUR ---
HEARD CRYING COMING FROM PATIENT'S ROOM. WENT IN AND PATIENT WAS CRYING LOUDLY. PATIENT STATES 'SOMETHING NOT RIGHT. SOMETHING NOT RIGHT." I ASKED IF HE WAS IN PAIN AND ASKED HIM TO POINT TO WHERE IT'S NOT RIGHT. HE SAID NO PAIN. I ASKED IF HE HAD A BAD DREAM? HE SAID, "I BAD DREAM. BAD DREAM NOT RIGHT." I ASSESSED PATIENT FOR INCONTINENCE AND PAIN WHICH WAS NEGATIVE FOR BOTH. I ASSURED HIM HE IS SAFE AND EVERY THING IS OKAY. HE CALMED AND I TALKED TO HIM ABOUT ANEESH TUNES AND STARTED SINGING. HE STARTED LAUGHING, AND SAID, "I KNOW. I KNOW." I SANG JINGLE BELLS. HE SMILED. I ASKED IF HE WANTED TO GO BACK TO SLEEP. HE SAID SLEEP. WENT TO CHECK ON PATIENT A FEW MINUTES LATER. HE IS SLEEPING.
[2019-10-24 07:30] VITALS: BP 121/70
[2019-10-24 08:59] VITALS: BP 121/70
[2019-10-24 10:41] VITALS: BP 121/70
--- NOTE | 2019-10-25 00:59 | NUR ---
1909-Report received from day shift nurse. He was in his bed and talkative to this nurse. He was asked when his birthday is and he said "[birth year]", and asked the president and he said "Trump". He was asked what year it is and he said "[birth year]". His day is '[birth year]'. He refused his HS meds. spitting it out then shaking head. He was cooperative with ADL's, unhappy about the cold sprays and sang out for awhile but then fell asleep.
--- NOTE | 2019-10-25 05:15 | NUR ---
Patient incontinent of bladder x1 through the night. Patient attempted to hit staff while jamie care was being completed and linens changed. Patient had difficulty falling back to sleep after this occurred. Patient continued to lay in bed and sing until recently. Patient removing all linens from bed and scratching buttock. Patient having increased flatulence. Patient asked if he needed to have a bowel movement, patient repeated over and over "poop, poop, poop". Patient stood with mod assist x2 with use of walker and transferred to bedside commode without difficulty. Sat on commode but had no results. Patient then asked if he wanted to stay up for the day. Patient repeated "stay up, stay up". Patient dressed, AM hygiene completed. Patient seated in w/c in dayroom at this time looking at a magazine. Pleasant and cooperative at this time. Smiling, speaking rather clearly.
[2019-10-25 08:01] VITALS: BP 144/90
[2019-10-25] MEDS ORDERED: LEVAQUIN 500 M500 M3 PO (09:17)
[2019-10-25] MEDS ORDERED: ACCUNEB SO1.25 MG/1 INH (09:17)
[2019-10-25] MEDS ORDERED: MIRALAX17 GM PO (09:19)
[2019-10-25] MEDS ORDERED: PRIMIDONE50 MG PO (09:19)
[2019-10-25] MEDS ORDERED: SENNA-TIME S T1 EACH PO (09:19)
[2019-10-25 12:00] VITALS: BP 144/90
--- NOTE | 2019-10-25 12:08 | NUR ---
Pt discharged to home with via w/c. All belongings et valuables on unit returned to patient. Reviewed discharge summary, medications, satisfaction survey, and consent forms. Pt denies SI, HI, et psychosis at time of discharge. Pt communicating clearly this am. Pt discharged from unit without incident.
--- NOTE | 2019-10-26 22:11 | D ---
[facility] [place] [address] DISCHARGE SUMMARY Name: ANABELLE LUBIN Room #: 527B-B DIS IN M.R.#: [id number] Admission: 10/12/19 Attend Phys: Mickey Tejeda DO Discharge: 10/25/19 Date of : 43 Report #: [id number] THIS REPORT FOR: //name// CC: Mickey Hwang DATE OF SERVICE: 10/25/2019 INPATIENT PSYCHIATRIC DISCHARGE SUMMARY ATTENDING PHYSICIAN: Mickey Tejeda DO. VOICE OVER ARTIST: Davy Hwang DO. DISCHARGE DIAGNOSES: Major neurocognitive disorder, likely due to cerebrovascular disease with behavioral disturbance, improved. Medical comorbidities include pneumonia, improving with Levaquin. Chest x-ray in 6 weeks. Secondary Parkinson's disease - Sinemet stopped, hypercalcemia, resolved. The patient discharging to his private residence where he lives with his . The patient's primary care physician will be addressing his medication needs. It should be noted that the was advised that placement in a nursing facility was recommended; however, she did wish to take the patient home, so she is getting assistance of home health aides for that. DISCHARGE MEDICATIONS: Levofloxacin 500 mg p.o. daily x 1 more day; albuterol 1.25 mg inhaled q. 4 hours p.r.n. nebulizer; primidone 25 mg p.o. at bedtime for tremor; polyethylene glycol 17 grams p.o. daily for constipation; senna and docusate 1 tab p.o. b.i.d., hold if diarrhea; vitamin C 500 mg p.o. daily for wound healing; tamsulosin 0.4 mg p.o. daily for BPH; losartan 25 mg p.o. daily for hypertension; melatonin 10 mg p.o. at bedtime; psyllium seed packet 1 p.o. daily. Chest x-ray was done on this admission. REASON FOR ADMISSION: Referred from [facility] for combative and resistive behavior. HOSPITAL COURSE: The patient was admitted to Geriatric Psych Unit. Initially, I was treating him Olazipine to 10 mg twice a day of olanzapine. There was pneumonitis versus pneumonia developed on, I believe, the left side. Dr. Hwang was consulted and antibiotis was started. requestion both minimization of psychotropic drugs and dsicharge to her home. She made a point of saying she would not place him in penitentiary. The patient improved behaviora was but is [facility] [address] [place] [address] DISCHARGE SUMMARY Name: ANABELLE LUBIN Room #: 527B-B DIS IN R.#: [id number] Admission: 10/12/19 Attend Phys: Mickey Tejeda, DO Discharge: 10/25/19 Date of : 43 Report #: [id number] a max assist for most cares. PHYSICAL EXAMINATION: GENERAL: A well-developed, wheelchair bound. MENTAL STATUS EXAM: A well-developed, disheveled male, in wheelchair. Attention limited. Concentration limited. Speech dysarthric. He does not appear self-injurious. Memory impaired. Insight limited. Fund of knowledge diminished. CONDITION AT DISCHARGE: Stable. PROGNOSIS: Guarded given age and dementia. <ELECTRONICALLY SIGNED> By: Mickey Tejeda DO 10/26/192210 1641 10 Mickey Tejeda, /nt
== END 2019-10-25 12:41 | disposition home health service (06) | DRG 884 ==
LOC: SBH 16:16
PROVIDERS: Family Medicine; ADMIT Psychiatry & Neurology Psychiatry
DX: F01.51 Vascular dementia, unspecified severity, with behavioral disturbance (principal); J69.0 Pneumonitis due to inhalation of food and vomit; F02.81 Dementia in other diseases classified elsewhere, unspecified severity, with behavioral disturbance; I69.351 Hemiplegia and hemiparesis following cerebral infarction affecting right dominant side; R47.01 Aphasia; J44.0 Chronic obstructive pulmonary disease with (acute) lower respiratory infection; N40.0 Benign prostatic hyperplasia without lower urinary tract symptoms; G20 Parkinson's disease; Z79.01 Long term (current) use of anticoagulants; I10 Essential (primary) hypertension; E83.52 Hypercalcemia; F07.89 Other personality and behavioral disorders due to known physiological condition; E78.5 Hyperlipidemia, unspecified; S20.411A Abrasion of right back wall of thorax, initial encounter; Z91.81 History of falling; Z87.820 Personal history of traumatic brain injury; Z86.718 Personal history of other venous thrombosis and embolism; I99.8 Other disorder of circulatory system; Z99.3 Dependence on wheelchair; X58.XXXA Exposure to other specified factors, initial encounter; Y93.89 Activity, other specified; Y92.89 Other specified places as the place of occurrence of the external cause; Y99.8 Other external cause status
CPT/HCPCS: 10880